=== PATIENT | male | born 2000 | race Caucasian/White ===

== ENCOUNTER 2023-05-30 15:54 | Emergency (ER) | payer MEDICAID ==
[~2023-05-30] VITALS: Ht 180.3 cm; Wt 77.3 kg
[2023-05-30 16:21] VITALS: BP 132/85; PULSE 80; RESP 16; TEMP 98.4; O2SAT 96
== END 2023-05-30 16:45 | disposition home or self-care (01) ==
LOC: ER 15:55
DX: Z04.1 Encounter for examination and observation following transport accident (principal)
CPT/HCPCS: 99283